=== PATIENT | male | born 1960 | race Caucasian/White ===

== ENCOUNTER 2017-11-05 00:10 | Emergency (ER) | payer SELFPAY ==
[2017-11-05] MEDS ORDERED: Aluminum Hydroxide/Magnesium Hydroxide Susp (30 mL) PO STA (01:53)
--- NOTE | 2017-11-05 01:54 | C.PDOC ---
"History Of Present Illness 57 year old male presents to the ED c/o heart burn, excessive gas and dry mouth. Patient reports that after drinking coffee he noticed his mouth started getting dry and felt reflux which burnt his mouth. Patient states that symptoms worsen while lying down and is associated with heartburn. Patient reports also vomiting, being constipated. Patient has not tried any medication. Patient denies fever, chills, nausea, diarrhea, weakness, numbness. Chief Complaint (Nursing): Shortness Of Breath History Per: Patient History/Exam Limitations: no limitations Onset/Duration Of Symptoms: Days Current Symptoms Are (Timing): Still Present Initiating Event: Other Exacerbating Factor(s): Laying Flat Severity: None Recent travel outside of the [place]: No Additional History Per: Patient Past Medical History Reviewed: Historical Data, Nursing Documentation, Vital Signs Vital Signs: Last Vital Signs Temp 98.2 F 11/05/17 06:59 Pulse 62 11/05/17 06:59 Resp 14 11/05/17 06:59 BP 117/73 11/05/17 06:59 Pulse Ox 97 11/05/17 06:59 - Medical History PMH: Gastritis Surgical History: No Surg Hx Family History: States: Unknown Family Hx - Social History Hx Tobacco Use: No Hx Alcohol Use: Yes (occasional) Hx Substance Use: No - Immunization History Hx Tetanus Toxoid Vaccination: No Hx Influenza Vaccination: No Hx Pneumococcal Vaccination: No Review Of Systems Constitutional: Negative for: Fever, Chills Cardiovascular: Positive for: Chest Pain. Negative for: Palpitations Respiratory: Negative for: Shortness of Breath Gastrointestinal: Positive for: Abdominal Pain. Negative for: Nausea, Vomiting Skin: Negative for: Rash Neurological: Negative for: Weakness, Numbness Physical Exam - Physical Exam Appears: Non-toxic, No Acute Distress Skin: Normal Color, Warm, Dry Head: Atraumatic, Normacephalic Eye(s): bilateral: Normal Inspection Oral Mucosa: Moist Neck: Normal ROM, Supple Chest: Symmetrical Cardiovascular: Rhythm Regular Respiratory: Normal Breath Sounds, No Rales, No Rhonchi, No Wheezing Gastrointestinal/Abdominal: Soft, Tenderness (epigastric ), No Guarding, No Rebound Extremity: Normal ROM, No Tenderness, No Swelling Neurological/Psych: Oriented x3, Normal Speech Gait: Steady ED Course And Treatment - Laboratory Results Result Diagrams: 11/05/17 02:15 11/05/17 02:15 ECG: Interpreted By Me, Viewed By Me ECG Rhythm: Sinus Bradycardia ECG Interpretation: Normal Rate From EC (BPM) O2 Sat by Pulse Oximetry: 100 (ON RA) Pulse Ox Interpretation: Normal - CT Scan/US CTA chest Other Rad Studies (CT/US): Read By Radiologist, Radiology Report Reviewed CT/US Interpretation: EXAM: CT Angiography Chest With Intravenous Contrast. CLINICAL HISTORY: 57 years old, male; Pain; Chest pain; Additional info: SOB. TECHNIQUE: Axial computed tomographic angiography images of the chest with intravenous contrast using. pulmonary embolism protocol. All CT scans at this facility use at least one of these dose optimization. techniques: automated exposure control; mA and/or kV adjustment per patient size (includes targeted. exams where dose is matched to clinical indication); or iterative reconstruction. 914 images are. submitted. Axial reformatted images are submitted in mediastinal and lung windows. MIP reconstructed images were created and reviewed. Coronal and sagittal reformatted images were created and reviewed. CONTRAST: 100 mL of [id number] administered intravenously. COMPARISON: No relevant prior studies available. FINDINGS: Artifacts: Limited due to motion and misregistration artifacts.Limited due to pulsation artifact. Pulmonary arteries: No CT evidence for pulmonary embolus. Aorta: No acute findings. No thoracic aortic aneurysm. Lungs: Mild parabronchial cuffing , which can be seen with bronchitis, reactive airway disease or viral. pneumonitis versus mild failure. There is hazy infiltration involving the dependent right upper lobe. and left lung and right lung base and areas of hyperlucency representing failure versus reactive. airway disease versus increased intravascular volume. The visualized portions of major airways are. patent. Right upper lobe nonspecific pleural-parenchymal scarring. No mass. COPD. Pleural space: Unremarkable. No significant effusion. No pneumothorax. Heart: Possible cardiomegaly. Bones/joints: Sclerotic densities within the left -sided ribs likely representing bone islands unless a. blastic process is clinically suspected. No acute fracture. No dislocation. Soft tissues: Left gynecomastia. Lymph nodes: Unremarkable. No enlarged lymph nodes. ELIZABETH NICHOLS | Preliminary Radiology Report. CONFIDENTIALITY STATEMENT. This report is intended only for the use of the referring physician, and only in accordance with law, If you received this in error, call [phone]. Page 2 of 2. Adrenals: Partially visualized adrenal glands. Kidneys and ureters: Bilateral perinephric scarring may be a sequela of infection, inflammation or. aging. Stomach and bowel: Diverticulosis. Upper abdomen: There is possible left diaphragmatic hernia containing colon, spleen, portion of the. pancreas. There is elevation of left hemidiaphragm. Fatty liver. IMPRESSION: 1. Mild parabronchial cuffing, which can be seen with bronchitis, reactive airway disease or viral. pneumonitis versus mild failure. There is hazy infiltration involving the dependent right upper lobe. and left lung and right lung base and areas of hyperlucency representing failure versus reactive. airway disease versus increased intravascular volume. 2. No CT evidence for pulmonary embolus. Correlation with internal medicine evaluation and further workup or followup as recommended by. patient's clinical data. Thank you for allowing us to participate in the care of your patient. Dictated and Authenticated by: Adithya Manzanares MD. 11/05/2017 6:43 AM Eastern Time ([place] & [place]) Medical Decision Making Medical Decision Making: Impression: SOB, epigastric pain Plan: * Labs * CXR * Lidocaine 2% viscous * Maalox 40 mg IVP * Protonix 40 mg IVP * Zofran 4mg IVP Disposition - Disposition Referrals: [facility] [Outside] Disposition: HOME/ ROUTINE Disposition Time: 20:57 Condition: GOOD Prescriptions: Pantoprazole Sodium [Protonix] 40 mg PO DAILY #14 ect Instructions: Acid Reflux (Gastroesophageal Reflux Disease), Adult (DC), Shortness of Breath (Dyspnea) (DC) Forms: [employer] ([place]) Print Language: URUGUAYAN - Clinical Impression Clinical Impression: GERD (gastroesophageal reflux disease) - Scribe Statement The provider has reviewed the documentation as recorded by the Scribe Richard Sheppard All medical record entries made by the Scribe were at my direction and personally dictated by me. I have reviewed the chart and agree that the record accurately reflects my personal performance of the history, physical exam, medical decision making, and the department course for this patient. I have also personally directed, reviewed, and agree with the discharge instructions and disposition."
[2017-11-05 02:18] LABS: BASO # 0.1 K/uL (0.0-0.2); BASO % 0.6 % (0.0-2.0); EOS # 0.4 K/uL (0.0-0.7); EOS % 3.3 % (0.0-4.0); HEMOGLOBIN 14.9 g/dL (12.0-18.0); LYMPH # 1.5 K/uL (1.0-4.3); LYMPH % 13.9 % (20.0-40.0); MEAN CELL VOLUME 89.9 fL (80.0-94.0); MEAN CORPUSCULAR HEMOGLOBIN 30.9 pg (27.0-31.0); MEAN CORPUSCULAR HGB CONC 34.4 g/dL (33.0-37.0); MEAN PLATELET VOLUME 8.5 fL (7.2-11.7); MONO # 0.6 K/uL (0.0-0.8); MONO % 5.8 % (0.0-10.0); NEUT # 8.4 K/uL (1.8-7.0); NEUT % 76.4 % (50.0-75.0); RBC 4.82 Mil/uL (4.40-5.90); RED CELL DISTRIBUTION WIDTH 13.4 % (11.5-14.5)
[2017-11-05] MEDS ORDERED: Aluminum Hydroxide/Magnesium Hydroxide Susp (30 mL) ONE (02:25)
[2017-11-05 02:31] LABS: ALB/GLOB RATIO 1.3 (1.0-2.1); ALT/SGPT 32 U/L (21-72); AST/SGOT 26 U/L (17-59); BLOOD UREA NITROGEN 12 mg/dL (9-20); GFR AFRICAN-AMERICAN > 60; GFR NON-AFRICAN AMERICAN > 60; LIPASE 115 U/L (23-300)
[2017-11-05 04:41] VITALS: RESP 14
[2017-11-05] MEDS ORDERED: Iodixanol 320 MG/ML 100 ML BOTTLE IV ONE (05:47)
[2017-11-05 07:00] VITALS: BP 117/73; PULSE 62; TEMP 98.2
--- NOTE | 2017-11-05 11:27 | CT ---
PROCEDURE: CT Chest with contrast (Pulmonary Angiogram) HISTORY: SOB. COMPARISON: Correlation made with chest radiograph obtained earlier same day TECHNIQUE: Axial computed tomography images were obtained of the chest in the pulmonary arterial phase of enhancement. Coronal and sagittal reformatted images were created and reviewed. Intravenous contrast dose: 100 cc Visipaque 320 Radiation dose: Total exam DLP = 465.4 mGy-cm. This CT exam was performed using one or more of the following dose reduction techniques: Automated exposure control, adjustment of the mA and/or kV according to patient size, and/or use of iterative reconstruction technique. FINDINGS: PULMONARY ARTERIES: Unremarkable. No pulmonary embolism. Pulmonary trunk measures approximately 2.9 cm. AORTA: No acute findings. No thoracic aortic aneurysm. Ascending thoracic aorta measures approximately 2.9 cm and descending thoracic aorta measures approximately 2.1 cm. LUNGS: Mild passive/dependent type atelectasis both posterior lower lung zones. Minor linear scarring in the left lung base, lingular and middle lobe regions. PLEURAL SPACES: Unremarkable. No effusion or pneumothorax. HEART: Heart size within range of normal. . There appears to be a tiny amount of fluid within the cleft between the ascending thoracic aorta and pulmonary trunk. . LYMPH NODES: No significant lymphadenopathy. BONES, CHEST WALL: Unremarkable. No fracture or destructive lesion. Note made of localized unilateral left-sided prominent somewhat bulbous appearing gynecomastia changes. Clinical correlation and additional follow-up studies such as mammography may be prudent to exclude underlying mass. There is a small bone island within the left lateral 6th rib. OTHER FINDINGS: Unremarkable. IMPRESSION: No evidence of acute central pulmonary embolus. Minor scarring changes seen left lung base lingular and middle lobe regions. Note made of localized unilateral left-sided prominent somewhat bulbous appearing gynecomastia changes. Clinical correlation and additional follow-up studies such as mammography may be prudent to exclude underlying mass. Note this report was placed in [facility] review folder for followup
--- NOTE | 2017-11-05 16:10 | RAD ---
PROCEDURE: CHEST RADIOGRAPH, 1 VIEW HISTORY: Abdominal pain COMPARISON: Comparison made with prior chest radiograph 12/22/2015 FINDINGS: LUNGS: Mild left basilar atelectasis and or scarring. PLEURA: No pneumothorax or pleural fluid seen. CARDIOVASCULAR: Normal. OSSEOUS STRUCTURES: No significant abnormalities. VISUALIZED UPPER ABDOMEN: Normal. OTHER FINDINGS: None. IMPRESSION: Mild left basilar atelectasis and or scarring
[2017-11-05 20:58] VITALS: O2SAT 100
== END 2017-11-05 07:05 | disposition home or self-care (01) ==
LOC: C.ER 00:10
DX: K21.9 Gastro-esophageal reflux disease without esophagitis (principal)
CPT/HCPCS: 71045; 71275; 80053; 83690; 83880; 84484; 85025; 85378; 96374; 96375; 99285; C9113; J2405; Q9967

== ENCOUNTER 2018-04-20 23:04 | Emergency (ER) | payer MEDICAID ==
[2018-04-20 23:11] VITALS: BP 135/82; PULSE 92; RESP 16; TEMP 97.7
[2018-04-20 23:18] VITALS: O2SAT 99
== END 2018-04-20 23:30 | disposition left against medical advice (07) ==
LOC: C.ER 23:04
DX: Z02.89 Encounter for other administrative examinations (principal); F41.9 Anxiety disorder, unspecified